=== PATIENT | male | born 1985 | race Caucasian/White ===

== ENCOUNTER 2016-12-11 01:38 | Emergency (ER) | payer OTHER | END 2016-12-11 02:36 | disposition home or self-care (01) | LOC: ER 01:38 | DX: S80.01XA Contusion of right knee, initial encounter (principal); F17.220 Nicotine dependence, chewing tobacco, uncomplicated; V49.50XA Passenger injured in collision with unspecified motor vehicles in traffic accident, initial encounter ==

== ENCOUNTER 2016-12-19 22:02 | Emergency (ER) | payer OTHER | END 2016-12-19 22:53 | disposition home or self-care (01) | LOC: ER 22:02 | DX: K21.9 Gastro-esophageal reflux disease without esophagitis (principal); F17.220 Nicotine dependence, chewing tobacco, uncomplicated | CPT/HCPCS: 36415; 96360 ==